=== PATIENT | male | born 1965 | race African-American/Black ===

== ENCOUNTER 2016-12-10 13:33 | Emergency (ER) | payer SELFPAY ==
[~2016-12-10] VITALS: Ht 182.9 cm; Wt 91.0 kg
[2016-12-10] MEDS ORDERED: HYDROCODONE/ACETAMINOPHEN 5/325MG TABLET PO ONE (20:45)
[2016-12-10 22:55] VITALS: BP 132/75
== END 2016-12-10 23:00 | disposition home or self-care (01) ==
LOC: ER 14:25
DX: S20.229A Contusion of unspecified back wall of thorax, initial encounter (principal); S80.10XA Contusion of unspecified lower leg, initial encounter; V89.2XXA Person injured in unspecified motor-vehicle accident, traffic, initial encounter; Y93.89 Activity, other specified; Y92.89 Other specified places as the place of occurrence of the external cause; Y99.8 Other external cause status
CPT/HCPCS: 72070; 72100; 99284